=== PATIENT | female | born 1970 | race Caucasian/White ===

== ENCOUNTER 2018-12-23 18:25 | Emergency (ER) | payer BC, OTHER ==
[~2018-12-23] VITALS: Ht 157.5 cm; Wt 65.0 kg
[2018-12-23] MEDS ORDERED: MORPHINE SULFATE 4 MG/ML CPJ (NOT FOR IM USE) IV ONE (19:30)
[2018-12-23] MEDS ORDERED: ONDANSETRON HCL 4MG/2ML INJ IV ONE (19:30)
[2018-12-23 20:15] LABS: BASOPHILS % 0.4 % (0.0-2.0); EOSINOPHILS % 0.9 % (0.0-5.0); HEMATOCRIT. 39.1 % (36.0-48.0); HEMOGLOBIN. 12.7 g/dL (12.0-16.0); LYMPHOCYTES % 7.1 % (20.0-50.0); MEAN CORPUSCULAR HEMOGLOBIN 24.2 pg (28.0-32.0); MEAN CORPUSCULAR VOLUME 74.6 fL (81.0-99.0); MEAN PLATELET VOLUME 8.4 fl (7.4-10.4); MONOCYTES % 7.3 % (2.0-8.0); NEUTROPHILS % 84.3 % (40.0-76.0); PLATELET 284 x1000/uL (130-400); RED BLOOD CELL COUNT 5.24 mill/uL (4.2-5.4); RED CELL DISTRIBUTION WIDTH 15.6 % (11.6-14.6)
[2018-12-23 20:16] LABS: CHLORIDE 105 mEq/L (98-107)
[2018-12-23 20:22] LABS: UCG SCREEN NEGATIVE
[2018-12-23] MEDS ORDERED: KETOROLAC 30MG/ML VIAL IV ONE (20:30)
[2018-12-23] MEDS ORDERED: SODIUM CHLORIDE 0.9% 1,000 ML IV ONE (22:15)
[2018-12-24 00:10] VITALS: BP 109/61
== END 2018-12-24 00:15 | disposition home or self-care (01) ==
LOC: ER 18:25
DX: R10.13 Epigastric pain (principal); R07.2 Precordial pain; R06.02 Shortness of breath
CPT/HCPCS: 36415; 71045; 76705; 80053; 81025; 83690; 83880; 84484; 85025; 85379; 93005; 96374; 96375; 99284; J1885; J2270; J2405